=== PATIENT | male | born 1960 | race Caucasian/White ===

== ENCOUNTER 2021-05-16 15:31 | Inpatient (IN) | payer BC ==
[~2021-05-16] VITALS: Ht 188 cm; Wt 92.2 kg
[2021-05-17 18:24] LABS: RED BLOOD COUNT 4.45 M/UL (4.20-5.50); WHITE BLOOD COUNT 11.2 K/UL (4.5-11.0)
[2021-05-17] MEDS ORDERED: OXCARBAZEPINE600 MG PO (18:25)
[2021-05-17 18:45] LABS: BUN/CREATININE RATIO 36 (0-10)
[2021-05-18 04:57] LABS: HEMOGLOBIN 13.6 gm/dl (14.0-17.5); RED BLOOD COUNT 4.28 M/UL (4.20-5.50); WHITE BLOOD COUNT 11.9 K/UL (4.5-11.0)
[2021-05-18 05:23] LABS: BUN/CREATININE RATIO 36 (0-10)
[2021-05-19 04:11] LABS: HEMOGLOBIN 13.6 gm/dl (14.0-17.5); RED BLOOD COUNT 4.34 M/UL (4.20-5.50)
[2021-05-19 04:21] LABS: WHITE BLOOD COUNT 7.9 K/UL (4.5-11.0)
[2021-05-19 04:39] LABS: BUN/CREATININE RATIO 31 (0-10)
[2021-05-20 04:00] LABS: HEMOGLOBIN 13.7 gm/dl (14.0-17.5); RED BLOOD COUNT 4.39 M/UL (4.20-5.50); WHITE BLOOD COUNT 6.6 K/UL (4.5-11.0)
[2021-05-20 04:25] LABS: BUN/CREATININE RATIO 36 (0-10)
[2021-05-21 03:27] LABS: HEMOGLOBIN 13.9 gm/dl (14.0-17.5); RED BLOOD COUNT 4.44 M/UL (4.20-5.50); WHITE BLOOD COUNT 7.2 K/UL (4.5-11.0)
[2021-05-21 04:04] LABS: BUN/CREATININE RATIO 31 (0-10)
[2021-05-22 02:54] LABS: HEMOGLOBIN 13.9 gm/dl (14.0-17.5); RED BLOOD COUNT 4.49 M/UL (4.20-5.50); WHITE BLOOD COUNT 7.3 K/UL (4.5-11.0)
[2021-05-22 06:21] LABS: BUN/CREATININE RATIO 26 (0-10)
[2021-05-23 04:18] LABS: HEMOGLOBIN 13.8 gm/dl (14.0-17.5); RED BLOOD COUNT 4.44 M/UL (4.20-5.50); WHITE BLOOD COUNT 6.7 K/UL (4.5-11.0)
[2021-05-23 04:38] LABS: BUN/CREATININE RATIO 21 (0-10)
[2021-05-24 06:40] LABS: HEMOGLOBIN 14.4 gm/dl (14.0-17.5); RED BLOOD COUNT 4.59 M/UL (4.20-5.50); WHITE BLOOD COUNT 5.5 K/UL (4.5-11.0)
[2021-05-24 07:04] LABS: BUN/CREATININE RATIO 21 (0-10)
[2021-05-25 06:41] LABS: HEMOGLOBIN 14.6 gm/dl (14.0-17.5); RED BLOOD COUNT 4.65 M/UL (4.20-5.50); WHITE BLOOD COUNT 5.4 K/UL (4.5-11.0)
[2021-05-25 07:01] LABS: BUN/CREATININE RATIO 25 (0-10)
[2021-05-26 10:05] LABS: HEMOGLOBIN 15.8 gm/dl (14.0-17.5); RED BLOOD COUNT 5.04 M/UL (4.20-5.50); WHITE BLOOD COUNT 5.4 K/UL (4.5-11.0)
[2021-05-26 10:33] LABS: BUN/CREATININE RATIO 24 (0-10)
[2021-05-27 07:05] LABS: HEMOGLOBIN 14.7 gm/dl (14.0-17.5); RED BLOOD COUNT 4.69 M/UL (4.20-5.50); WHITE BLOOD COUNT 5.9 K/UL (4.5-11.0)
[2021-05-27 08:18] LABS: BUN/CREATININE RATIO 24 (0-10)
[2021-05-27] MEDS ORDERED: BENZONATATE100 MG PO (14:54)
[2021-05-27] MEDS ORDERED: BUDESONIDE0.5 MG/2 M NEB (14:54)
[2021-05-27] MEDS ORDERED: DEXAMETHASONE1 MG PO (14:54)
[2021-05-27] MEDS ORDERED: NEBULIZER UNIT INH (14:54)
[2021-05-27] MEDS ORDERED: ELIQUIS 5 MG TAB5 MG PO (14:54)
[2021-05-27] MEDS ORDERED: IPRAT-ALBUT 0.5-3 ML NEB (14:54)
[2021-05-27] MEDS ORDERED: PROTONIX 40 MG40 M1 PO (14:54)
== END 2021-05-27 16:07 | disposition home health service (06) | DRG 177 ==
LOC: PROG CARE 05-17 16:53 → MED SURG 4 05-17 16:53
PROVIDERS: Internal Medicine; Internal Medicine Pulmonary Disease; Physician Assistant; ADMIT Internal Medicine
PROC: 8E0ZXY6 Isolation (ICD-10-PCS; principal; 2021-05-17)
PROC: 3E0333Z Introduction of Anti-inflammatory into Peripheral Vein, Percutaneous Approach (ICD-10-PCS; 2021-05-17)
PROC: 5A09457 Assistance with Respiratory Ventilation, 24-96 Consecutive Hours, Continuous Positive Airway Pressure (ICD-10-PCS; 2021-05-17)
PROC: XW033E5 Introduction of Remdesivir Anti-infective into Peripheral Vein, Percutaneous Approach, New Technology Group 5 (ICD-10-PCS; 2021-05-18)
PROC: XW033H5 Introduction of Tocilizumab into Peripheral Vein, Percutaneous Approach, New Technology Group 5 (ICD-10-PCS; 2021-05-18)
PROC: 5A0945A Assistance with Respiratory Ventilation, 24-96 Consecutive Hours, High Flow/Velocity Cannula (ICD-10-PCS; 2021-05-24)
DX: U07.1 COVID-19 (principal); J12.82 Pneumonia due to coronavirus disease 2019; J96.01 Acute respiratory failure with hypoxia; R74.01 Elevation of levels of liver transaminase levels; R25.1 Tremor, unspecified; E78.5 Hyperlipidemia, unspecified; E11.65 Type 2 diabetes mellitus with hyperglycemia; G93.0 Cerebral cysts; E87.6 Hypokalemia; G40.909 Epilepsy, unspecified, not intractable, without status epilepticus; Z79.899 Other long term (current) drug therapy; Z79.82 Long term (current) use of aspirin; Z83.1 Family history of other infectious and parasitic diseases; Z98.890 Other specified postprocedural states; Z23 Encounter for immunization
CPT/HCPCS: 36415; 36600; 71045; 71275; 80048; 80053; 80076; 82728; 82803; 83036; 83605; 83615; 83735; 83880; 84100; 85025; 85027; 85379; 85384; 85610; 86140; 87081; 93005; 93970; 94640; 94660; 94664; 94760; 97116-GP-CQ; 97162; 97530-GP-CQ; J0456; J0696; J1100; J1650; J7030; Q0177; Q0249; Q9967

== ENCOUNTER → 2021-06-13 | Outpatient (CLI) | payer BC ==
[~2021-06-13] MED LIST: BENZONATATE100 MG PO; BUDESONIDE0.5 MG/2 M NEB; DEXAMETHASONE1 MG PO; ELIQUIS 5 MG TAB5 MG PO; IPRAT-ALBUT 0.5-3 ML NEB; NEBULIZER UNIT INH; OXCARBAZEPINE600 MG PO; PROTONIX 40 MG40 M1 PO
== END ==
LOC: EXRD 14:36
DX: J96.01 Acute respiratory failure with hypoxia (principal); R91.8 Other nonspecific abnormal finding of lung field
CPT/HCPCS: 71046